=== PATIENT | male | born 1935 | race Caucasian/White ===

== ENCOUNTER 2016-06-08 17:31 | Emergency (ER) | payer MEDICARE, BC ==
[~2016-06-08] VITALS: Ht 172.7 cm; Wt 73.0 kg
[2016-06-08 17:34] VITALS: Ht 172.7 cm; Wt 73.0 kg
[2016-06-08] MEDS ORDERED: KETOROLAC 30 MG INJ IV STA (18:01)
--- NOTE | 2016-06-08 18:20 | ERD ---
ER Documentation Chief Complaint Date/Time DATE: 06/08/16 TIME: 18:15 Chief Complaint pt bib with c/o left sided leg pain, starting few days ago HPI This is a 80-year-old male presenting to the emergency department for left- sided leg pain 3 days. Patient states he has medial and lateral left knee pain that is sharp in nature. Denies any audible pop. No recent injury or trauma to area. Patient states pain has worsened over the last 3 days and is now unable to bear weight to left leg without pain. Patient rating pain 8/10. Pain is nonradiating. No loss of sensation, numbness or tingling. No ecchymosis or laceration. Patient had fusion of L4-L5 March 2016 otherwise no recent surgery. No fevers or chills. No urinary or fecal incontinence. Denies back pain. No chest pain, wheezing, difficulty breathing or shortness of breath. No calf swelling or pain. ROS All systems reviewed and are negative except as per history of present illness. Medications Home Meds Active Scripts Ibuprofen* (Motrin*) 800 Mg Tab, 800 MG PO Q6, #30 TAB Prov:RAMONE SMALLS NP 06/08/16 Allergies Allergies: Coded Allergies: No Known Allergy (Unverified , 06/08/16) PMhx/Soc History of Surgery: Yes (L4-L5 LUMBAR FUSION 03/20, BLADDER SX, AVNI INGUINAL HERNIA) Anesthesia Reaction: No Hx Neurological Disorder: No Hx Respiratory Disorders: No Hx Cardiac Disorders: Yes (HTN, HYPERLIPIDEMIA) Hx Psychiatric Problems: No Hx Miscellaneous Medical Probl: No Hx Alcohol Use: No Hx Substance Use: No Hx Tobacco Use: No Smoking Status: Never smoker Physical Exam Vitals Vital Signs Date Time Temp Pulse Resp B/P Pulse Ox O2 Delivery O2 Flow Rate FiO2 06/08/16 20:11 98.0 95 18 165/84 98 Room Air 06/08/16 17:34 97.9 101 18 133/75 98 Physical Exam Const: . Alert, [id number] Head: Atraumatic Eyes: Normal Conjunctiva ENT: Normal External Ears, Nose and Mouth. Neck: Full range of motion..~ No meningismus. Resp: Clear to auscultation bilaterally. No wheezing, rhonchi or crackles. Cardio: Regular rate and rhythm, no murmurs Abd: Soft, non tender, non distended. Normal bowel sounds Skin: No petechiae or rashes Back: No midline or flank tenderness Ext: mild posterior knee swelling. no loss of sensation. limited acitve and passive extension and flexion to left leg. No laceration or ecchymosis. No calf swelling or pain. Neur: Awake and alert Psych: Normal Mood and Affect Result Diagram: 06/08/16183106/08/161831 Results 24 hrs Laboratory Tests Test 06/08/16 18:32 Activated Partial Thromboplast Time 24.0Sec Alanine Aminotransferase (ALT/SGPT) 25IU/L Albumin 4.0g/dl Albumin/Globulin Ratio 1.37 Alkaline Phosphatase 158IU/L Anion Gap 18 Aspartate Amino Transf (AST/SGOT) 18IU/L Basophils # 0.010^3/ul Basophils % 0.5% Blood Urea Nitrogen 24mg/dl Calcium Level 9.4mg/dl Carbon Dioxide Level 23mmol/L Chloride Level 105mmol/L Creatinine 1.33mg/dl Direct Bilirubin 0.00mg/dl Eosinophils # 0.210^3/ul Eosinophils % 2.9% Globulin 2.90g/dl Glucose Level 104mg/dl Hematocrit 45.7% Hemoglobin 15.4g/dl INR International Normalized Ratio 0.90 Indirect Bilirubin 0.2mg/dl Lymphocytes # 1.210^3/ul Lymphocytes % 14.3% Mean Corpuscular Hemoglobin 29.8pg Mean Corpuscular Hemoglobin Concent 33.7g/dl Mean Corpuscular Volume 88.4fl Mean Platelet Volume 9.1fl Monocytes # 0.710^3/ul Monocytes % 8.0% Neutrophils # 6.110^3/ul Neutrophils % 74.3% Nucleated Red Blood Cells # 0.010^3/ul Nucleated Red Blood Cells % 0.0/100WBC Platelet Count 26101^3/UL Potassium Level 4.4mmol/L Prothrombin Time 12.1Sec Prothrombin Time Ratio 0.9 Red Blood Count 5.1710^6/ul Red Cell Distribution Width 13.6% Sodium Level 142mmol/L Total Bilirubin 0.2mg/dl Total Protein 6.9g/dl White Blood Count 8.210^3/ul Current Medications Medications (Trade) Dose Ordered Sig/Lexa Route PRN Reason Start Time Stop Time Status Last Admin Dose Admin Ketorolac Tromethamine (Toradol) 30 mg ONCE STAT IV 06/08/16 18:01 06/08/16 18:04 DC 06/08/16 18:38 Procedures/MDM ED COURSE: The patient was stable throughout ED course. I kept the patient and/or family informed of laboratory and diagnostic imaging results throughout the ED course. IV access obtained and Toradol given Laboratory CBC unremarkable CMP unremarkable PT 12.1 PTT 24.0 INR 0.90 Imaging Venous ultrasound left lower extremity Patient: DELILAH WRIGHT : 1935 Age: 80 Sex: M MR #: [id number] DOS: 06/08/16 180 Ordering MD: RAMONE SMALLS NP Location: [facility] Room/Bed: PROCEDURE: US Lower extremity Venous. CLINICAL INDICATION: Left lower extremity pain. Possible deep venous thrombosis. TECHNIQUE: Multiple sonographic images of the left lower extremity deep venous system was obtained utilizing grayscale, color-flow, compressive sonography and doppler imaging with augmentation. COMPARISON: None. FINDINGS: There is normal compressibility / flow within the left common femoral, femoral and popliteal veins. The visualized deep veins of the calf are unremarkable. RPTAT:HJJR IMPRESSION: No sonographic evidence for deep venous thrombosis of the left lower extremity. Patient: DELILAH WRIGHT : 1935 Age: 80 Sex: M MR #: [id number] DOS: 06/08/161800 Ordering MD: RAMONE SMALLS NP Location: [facility] Room/Bed: PROCEDURE: Left knee x-ray CLINICAL INDICATION: Left leg and knee pain for 3 days. TECHNIQUE: AP, lateral and oblique views of the left knee were obtained. COMPARISON: None FINDINGS: There is normal mineralization. No acute fracture or dislocation is seen. There are no significant degenerative changes. Small amount of joint fluid. There is no significant soft tissue swelling. IMPRESSION: Small amount of joint fluid at the knee, without acute fracture. MDM: 80-year-old male presents emergency department for left knee pain 3 days. Pain has been worsening over the last 3 days. Now rating pain 8/10 to left knee. Pain is not radiating. No injury or trauma to area. Mild posterior knee swelling. No visible deformity. Toradol given through IV with some relief of pain. No fevers or chills. No urinary or fecal incontinence. Denies back or chest pain. No shortness of breath or difficulty breathing. Low suspicion for DVT, PE CHF exacerbation, acute dislocation or fracture. Patient is appropriate for outpatient management and will be discharged with prescription for ibuprofen. Follow up with PCP in the next 24-48hrs for reassessment and additional management. Return to ED for any new or worsening symptoms. Patient verbalizes understanding. All questions answered at discharge. Departure Diagnosis: Primary Impression: Knee pain Laterality: left Chronicity: acute Qualified Code: M25.562 - Acute pain of left knee Condition: Stable RAMONE SMALLS NP Jun 08, 2016 18:20
--- NOTE | 2016-06-08 19:04 | RADRPT ---
PROCEDURE: Left knee x-ray CLINICAL INDICATION: Left leg and knee pain for 3 days. TECHNIQUE: AP, lateral and oblique views of the left knee were obtained. COMPARISON: None FINDINGS: There is normal mineralization. No acute fracture or dislocation is seen. There are no significant degenerative changes. Small amount of joint fluid. There is no significant soft tissue swelling. IMPRESSION: Small amount of joint fluid at the knee, without acute fracture. RPTAT: [facility] Physician Michaelle Date Time Electronically viewed and signed by Physician Michaelle on 06/08/2016 19:04 RS/
[2016-06-08 19:11] LABS: BASOPHILS % 0.5 % (0.0-2.0); EOSINOPHILS # 0.2 10^3/ul (0.0-0.5); EOSINOPHILS % 2.9 % (0.0-7.0); HEMATOCRIT 45.7 % (42.0-52.0); HEMOGLOBIN 15.4 g/dl (14.0-18.0); LYMPHOCYTES # 1.2 10^3/ul (0.8-2.9); LYMPHOCYTES % 14.3 % (15.0-51.0); MEAN CORPUSCULAR HEMOGLOBIN 29.8 pg (29.0-33.0); MEAN CORPUSCULAR HGB CONC 33.7 g/dl (32.0-37.0); MEAN CORPUSCULAR VOLUME 88.4 fl (82.0-101.0); MEAN PLATELET VOLUME 9.1 fl (7.4-10.4); MONOCYTE # 0.7 10^3/ul (0.3-0.9); NEUTROPHIL # 6.1 10^3/ul (1.6-7.5); NEUTROPHILS % 74.3 % (39.0-77.0); PLATELET COUNT 170 10^3/UL (140-440); RED BLOOD COUNT 5.17 10^6/ul (4.70-6.10); RED CELL DISTRIBUTION WIDTH 13.6 % (11.5-14.5); UNCORRECTED WBC 8.2 10^3/ul (4.8-10.8); WHITE BLOOD COUNT 8.2 10^3/ul (4.8-10.8)
[2016-06-08 19:13] LABS: CONDITION 1
[2016-06-08 19:19] LABS: INR 0.9; PROTIME 12.1 Sec (12.2-14.2); PT RATIO 0.9
[2016-06-08 19:20] LABS: POTASSIUM 4.4 mmol/L (3.5-5.1)
[2016-06-08 19:22] LABS: ALBUMIN/GLOBULIN RATIO 1.37; BILIRUBIN,INDIRECT 0.2 mg/dl (0-1.1); BILIRUBIN,TOTAL 0.2 mg/dl (0.2-1.3); CREATININE 1.33 mg/dl (0.61-1.24); TOTAL PROTEIN 6.9 g/dl (6.1-8.1)
[2016-06-08 19:23] LABS: CALCIUM 9.4 mg/dl (8.4-10.2)
--- NOTE | 2016-06-08 19:44 | RADRPT ---
PROCEDURE: US Lower extremity Venous. CLINICAL INDICATION: Left lower extremity pain. Possible deep venous thrombosis. TECHNIQUE: Multiple sonographic images of the left lower extremity deep venous system was obtained utilizing grayscale, color-flow, compressive sonography and doppler imaging with augmentation. COMPARISON: None. FINDINGS: There is normal compressibility / flow within the left common femoral, femoral and popliteal veins. The visualized deep veins of the calf are unremarkable. RPTAT:HJJR IMPRESSION: No sonographic evidence for deep venous thrombosis of the left lower extremity. Physician Jean Carlos Date Time Electronically viewed and signed by Physician Jean Carlos on 06/08/2016 19:44 JR/
[2016-06-08] MEDS ORDERED: IBUP800T25 PO (20:00)
[2016-06-08 20:11] VITALS: BP 165/84; PULSE 95; RESP 18; TEMP 98
== END 2016-06-08 20:17 | disposition home or self-care (01) ==
LOC: FTE 17:31
DX: M25.562 Pain in left knee (principal); I10 Essential (primary) hypertension
CPT/HCPCS: 73562; 80053; 85025; 85610; 85730; 93971; 96374; 99285; J1885